=== PATIENT | female | born 1970 | race Caucasian/White ===

== ENCOUNTER → 2019-03-27 | Outpatient (CLI) | payer OTHER | END | disposition home or self-care (01) | LOC: RAD 13:25 | DX: M47.812 Spondylosis without myelopathy or radiculopathy, cervical region (principal) ==

== ENCOUNTER → 2019-04-29 | Outpatient (CLI) | payer OTHER ==
[2019-04-29 08:39] LABS: CREATININE 1.06 mg/dL (0.55-1.02)
== END | disposition home or self-care (01) ==
LOC: LAB 08:15 → CT 09:00
PROVIDERS: Family Medicine
DX: G44.029 Chronic cluster headache, not intractable (principal); R42 Dizziness and giddiness; R52 Pain, unspecified; R11.2 Nausea with vomiting, unspecified

== ENCOUNTER → 2021-11-10 | Outpatient (CLI) | payer BC | END | disposition home or self-care (01) | LOC: COVID19 17:34 | PROVIDERS: ATTEND Family Medicine | DX: Z20.822 Contact with and (suspected) exposure to COVID-19 (principal) ==

== ENCOUNTER → 2023-08-04 | Outpatient (CLI) | payer BC | END | disposition home or self-care (01) | LOC: US 07:16 | PROVIDERS: ATTEND Family Medicine | DX: R10.819 Abdominal tenderness, unspecified site (principal); Z90.710 Acquired absence of both cervix and uterus ==

== ENCOUNTER → 2023-08-08 | Outpatient (CLI) | payer BC | END | disposition home or self-care (01) | LOC: MAMMO 13:00 | PROVIDERS: ATTEND Family Medicine | DX: N63.20 Unspecified lump in the left breast, unspecified quadrant (principal); D25.9 Leiomyoma of uterus, unspecified ==

== ENCOUNTER → 2023-08-14 | Outpatient (CLI) | payer BC | END | disposition home or self-care (01) | LOC: CT 15:00 | PROVIDERS: ATTEND Family Medicine | DX: R14.0 Abdominal distension (gaseous) (principal); R10.31 Right lower quadrant pain; R53.83 Other fatigue; Z90.49 Acquired absence of other specified parts of digestive tract; Z90.710 Acquired absence of both cervix and uterus ==

== ENCOUNTER → 2023-08-25 | Outpatient (CLI) | payer BC | END | disposition home or self-care (01) | LOC: MRI 02:13 | PROVIDERS: ATTEND Family Medicine | DX: K22.89 Other specified disease of esophagus (principal) ==